=== PATIENT | female | born 1975 | race Caucasian/White ===

== ENCOUNTER 2021-04-26 13:26 | Inpatient (IN) | payer MEDICARE ==
[~2021-04-26] VITALS: Ht 157.5 cm; Wt 47.0 kg
[2021-04-26] MEDS ORDERED: OLANZapine 5 MG TABLET PO ONE (15:00)
[2021-04-26] MEDS ORDERED: LORazepam 1 MG TABLET PO ONE (15:00)
[2021-04-26 15:01] LABS: BASOPHILS % (AUTO) 0.6 % (0.0-2.0); EOSINOPHILS % (AUTO) 1.5 % (1.0-6.0); HEMATOCRIT 39.4 % (36-46); HEMOGLOBIN 13.1 g/dL (12.0-16.0); LYMPHOCYTES # (AUTO) 3.2 K/uL (1.0-4.8); LYMPHOCYTES % (AUTO) 24.2 % (22.0-44.0); MEAN CORPUSCULAR HEMOGLOBIN 30.9 pg (26.0-34.0); MEAN CORPUSCULAR HGB CONC 33.3 G/dL (31.0-37.0); MEAN CORPUSCULAR VOLUME 93 fL (80-100); MONOCYTES # (AUTO) 0.5 K/uL (0.1-1.0); MONOCYTES % (AUTO) 4.1 % (2.0-9.0); NEUTROPHILS # (AUTO) 9.3 K/uL (1.8-7.7); NEUTROPHILS % (AUTO) 69.6 % (40.0-70.0); PLATELET COUNT (AUTO) 349 K/uL (150-450); RED BLOOD CELL COUNT(AUTO) 4.24 MIL/uL (4.00-5.20); RED CELL DISTRIBUTION WIDTH 14.9 % (11.5-14.5)
[2021-04-26 15:23] LABS: ANION GAP 10 mmol/L (8-16); CALCIUM, TOTAL 8.8 mg/dL (8.8-10.5); CARBON DIOXIDE 25 mmol/L (22-29); CHLORIDE 106 mmol/L (98-107); CREATININE 0.77 mg/dL (0.60-1.30); GLOMERULAR FILTR. RATE CALC > 60 mL/min (>60); GLUCOSE,RANDOM 74 mg/dL (70-110); SODIUM SERUM 141 mmol/L (136-145); UREA NITROGEN, BLOOD 10 mg/dL (7-18)
[2021-04-26 15:26] LABS: AMPHET/METH SCREEN,URINE NEGATIVE (NEGATIVE); BARBITURATE SCREEN, URINE NEGATIVE (NEGATIVE); BENZODIAZEPINES SCREEN,URINE NEGATIVE (NEGATIVE); CANNABINOID SCREEN,URINE POSITIVE (NEGATIVE); COCAINE SCREEN,URINE NEGATIVE (NEGATIVE); METHADONE SCREEN, URINE NEGATIVE (NEGATIVE); OPIATE SCREEN,URINE NEGATIVE (NEGATIVE)
[2021-04-26 15:29] LABS: PHENCYCLIDINE SCREEN,URINE NEGATIVE (NEGATIVE)
[2021-04-26 15:38] LABS: ALANINE AMINOTRANSFERASE 17 U/L (12-78); ALBUMIN 3.9 g/dL (3.4-5.0); ALKALINE PHOSPHATASE 73 U/L (46-116); ASPARTATE AMINOTRANSFERASE 15 U/L (15-37); BILIRUBIN,TOTAL 0.6 mg/dL (0.1-1.0); FREE T4 (FREE THYROXINE) 1.18 ng/dL (0.76-1.46); LIPASE 111 U/L (73-393); THYROID STIMULATING HORMONE 1.12 uIU/mL (0.36-3.74); TOTAL PROTEIN, SERUM 6.9 g/dL (6.4-8.2)
[2021-04-26 15:42] LABS: APPEARANCE,URINE HAZY (CLEAR); SPECIFIC GRAVITIY, URINE 1.025 (1.003-1.030)
[2021-04-26 15:43] LABS: GLUCOSE, URINE (UA) NEGATIVE (NEGATIVE); OCCULT BLOOD,URINE NEGATIVE (NEGATIVE); PH,URINE 5.5 (5.0-8.0); PROTEIN,URINE NEGATIVE (NEGATIVE)
[2021-04-26 15:44] LABS: BILIRUBIN,URINE NEGATIVE (NEGATIVE); KETONES,URINE NEGATIVE (NEGATIVE); LEUKOCYTE ESTERASE ,URINE NEGATIVE (NEGATIVE); NITRATE,URINE NEGATIVE (NEGATIVE); UROBILINOGEN,URINE <=1.0 mg/dL (<=1.0)
[2021-04-26 15:45] LABS: BACTERIA,URINE Few /HPF (None Seen); RBC,URINE 0-2 /HPF (0-2); SQUAMOUS EPITHELIAL CELL,UR Few /LPF (None Seen); WBC,URINE 0-2 /HPF (0-5)
[2021-04-26] MEDS ORDERED: OLANZapine 5 MG RAPDIS TABLET PO PRN (20:30)
[2021-04-26 20:37] LABS: COVID AG,FIA SOURCE NASOPHARYNGEAL
[2021-04-26 21:39] VITALS: BP 135/89
[2021-04-26] MEDS: LORazepam 2 MG TABLET PO PRN (22:07)
[2021-04-27] MEDS: LORazepam 2 MG TABLET PO PRN ×2 (08:49→17:15)
[2021-04-27 09:17] VITALS: BP 105/73
[2021-04-27] MEDS: NICOTINE 14 MG/24 HOUR PATCH TD SCH (14:13)
[2021-04-27 16:05] VITALS: BP 132/89
[2021-04-27] MEDS ORDERED: ONDANSETRON HCL 4 MG TABLET PO PRN (16:45)
[2021-04-27] MEDS ORDERED: IBUPROFEN 600 MG TABLET PO PRN (16:45)
[2021-04-27] MEDS ORDERED: MAGNESIUM HYDROXIDE SUSPENSION 30 ML UDCUP PO PRN (16:45)
[2021-04-27] MEDS ORDERED: BENZOCAINE/MENTHOL LOZENGE PO PRN (16:45)
[2021-04-27] MEDS ORDERED: BACITRACIN 28 GM OINTMENT TP PRN (16:45)
[2021-04-27] MEDS ORDERED: DOCUSATE SODIUM 100 MG CAPSULE PO PRN (16:45)
[2021-04-27] MEDS ORDERED: LOPERAMIDE HCL 2 MG CAPSULE PO PRN (16:45)
[2021-04-27] MEDS ORDERED: PETROLATUM,WHITE 28 GM JELLY TP PRN (16:45)
[2021-04-27] MEDS ORDERED: MAG HYDROX/AL HYDROX/SIMETH ES 30 ML SUSPENSION UDCUP PO PRN (16:45)
[2021-04-27] MEDS ORDERED: CloNIDine HCL 0.1 MG TABLET PO PRN (16:45)
[2021-04-27] MEDS ORDERED: OMEPRAZOLE 20 MG CAPSULE PO PRN (16:45)
[2021-04-27] MEDS ORDERED: ALBUTEROL SULFATE HFA 90 MCG/PUFF 8 GM INHALER IH PRN (16:45)
[2021-04-27] MEDS ORDERED: ACETAMINOPHEN 325 MG TABLET PO PRN (16:45)
[2021-04-27] MEDS: OLANZapine 5 MG TABLET PO SCH (21:20)
[2021-04-28] MEDS: LORazepam 2 MG TABLET PO PRN ×3 (00:34→15:07)
[2021-04-28 00:38] VITALS: BP 133/88
[2021-04-28] MEDS: NICOTINE 14 MG/24 HOUR PATCH TD SCH (08:20)
[2021-04-28 09:15] VITALS: BP 128/83
[2021-04-28] MEDS: NICOTINE 21 MG/24 HOUR PATCH TD SCH (13:16)
[2021-04-28 16:44] VITALS: BP 107/62
[2021-04-28] MEDS: OLANZapine 5 MG TABLET PO SCH (21:12)
[2021-04-29 08:00] VITALS: BP 122/87
[2021-04-29] MEDS: NICOTINE 21 MG/24 HOUR PATCH TD SCH (08:43)
[2021-04-29] MEDS: LORazepam 2 MG TABLET PO PRN (08:44)
[2021-04-29] MEDS ORDERED: OLAN5TAB52 PO (12:53)
== END 2021-04-29 13:15 | disposition home or self-care (01) | DRG 885 ==
LOC: EMS 13:29 → 3EX 21:00
PROVIDERS: ADMIT Psychiatry & Neurology Psychiatry; ATTEND Psychiatry & Neurology Psychiatry
DX: F25.9 Schizoaffective disorder, unspecified (principal); R45.851 Suicidal ideations; F12.10 Cannabis abuse, uncomplicated; K59.00 Constipation, unspecified; J44.9 Chronic obstructive pulmonary disease, unspecified; G47.00 Insomnia, unspecified; F60.3 Borderline personality disorder; Z20.822 Contact with and (suspected) exposure to COVID-19; F17.200 Nicotine dependence, unspecified, uncomplicated; F43.10 Post-traumatic stress disorder, unspecified; F41.1 Generalized anxiety disorder; F31.9 Bipolar disorder, unspecified; F90.9 Attention-deficit hyperactivity disorder, unspecified type; Z90.49 Acquired absence of other specified parts of digestive tract; Z71.6 Tobacco abuse counseling; Z98.891 History of uterine scar from previous surgery
CPT/HCPCS: 80053; 81001; 83690; 84439; 84443; 84484; 84703; 85025; 93005; 99285; G0378; G0480

== ENCOUNTER 2024-05-19 05:58 | Emergency (ER) | payer MEDICARE, MEDICAID ==
[~2024-05-19] VITALS: Ht 162.6 cm; Wt 74.1 kg
[~2024-05-19 05:58] MED LIST: OLAN5TAB52 PO
[2024-05-19 06:16] VITALS: BP 112/64; PULSE 92; RESP 20; TEMP 98.2; O2SAT 97
[2024-05-19 06:42] LABS: BASOPHILS % (AUTO) 0.3 % (0.0-2.0); EOSINOPHILS % (AUTO) 3.6 % (1.0-6.0); HEMATOCRIT 36.8 % (36-46); HEMOGLOBIN 12.1 g/dL (12.0-16.0); LYMPHOCYTES # (AUTO) 2.1 K/uL (1.0-4.8); LYMPHOCYTES % (AUTO) 21.2 % (22.0-44.0); MEAN CORPUSCULAR HEMOGLOBIN 28.2 pg (26.0-34.0); MEAN CORPUSCULAR VOLUME 86 fL (80-100); MONOCYTES # (AUTO) 0.5 K/uL (0.1-1.0); NEUTROPHILS # (AUTO) 6.9 K/uL (1.8-7.7); NEUTROPHILS % (AUTO) 69.9 % (40.0-70.0); PLATELET COUNT (AUTO) 380 K/uL (150-450); RED CELL DISTRIBUTION WIDTH 14.1 % (11.5-14.5); WHITE BLOOD COUNT (AUTO) 9.8 K/uL (4.5-11.0)
[2024-05-19 06:54] LABS: ANION GAP 11 mmol/L (8-16); CALCIUM, TOTAL 7.9 mg/dL (8.8-10.5); CARBON DIOXIDE 22 mmol/L (22-29); CHLORIDE 108 mmol/L (98-107); CREATININE 0.63 mg/dL (0.60-1.30); GLOMERULAR FILTR. RATE CALC > 60 mL/min (>60); GLUCOSE,RANDOM 97 mg/dL (70-110); POTASSIUM 4.3 mmol/L (3.5-5.1); SODIUM SERUM 141 mmol/L (136-145); UREA NITROGEN, BLOOD 14 mg/dL (7-18)
[2024-05-19 06:57] LABS: B-TYPE NATRIURETIC PEPTIDE 10 pg/mL (0-100)
[2024-05-19 07:01] LABS: TROPONIN I-HIGH SENSITIVITY 5 ng/L (<51)
[2024-05-19] MEDS ORDERED: ZOLP-162 PO (08:15)
== END 2024-05-19 08:36 | disposition home or self-care (01) ==
LOC: EMS 05:58
DX: R00.2 Palpitations (principal); G47.9 Sleep disorder, unspecified; J44.89 Other specified chronic obstructive pulmonary disease; F31.9 Bipolar disorder, unspecified; Z88.2 Allergy status to sulfonamides; Z90.49 Acquired absence of other specified parts of digestive tract
CPT/HCPCS: 71045; 80048; 83735; 83880; 84484; 84703; 85025; 93005; 99285; 36415-L1; 36415-TC